=== PATIENT | female | born 1955 | race Caucasian/White ===

== ENCOUNTER 2023-06-22 13:38 | Inpatient (IN) | payer MEDICARE, MEDICAID ==
[~2023-06-22] VITALS: Ht 154.9 cm; Wt 58.7 kg
[~2023-06-22 13:38] MED LIST: ARIP5TAB37 PO; CITA-107 PO; TRAZ-184 PO
[2023-06-22 14:26] LABS: BASOPHILS % (AUTO) 0.6 % (0.0-2.0); EOSINOPHILS % (AUTO) 0.3 % (1.0-6.0); HEMOGLOBIN 13.5 g/dL (12.0-16.0); LYMPHOCYTES # (AUTO) 1.4 K/uL (1.0-4.8); LYMPHOCYTES % (AUTO) 19.6 % (22.0-44.0); MEAN CORPUSCULAR HEMOGLOBIN 29.3 pg (26.0-34.0); MEAN CORPUSCULAR HGB CONC 33.7 G/dL (31.0-37.0); MEAN CORPUSCULAR VOLUME 87 fL (80-100); MONOCYTES # (AUTO) 0.5 K/uL (0.1-1.0); MONOCYTES % (AUTO) 7.1 % (2.0-9.0); NEUTROPHILS # (AUTO) 5.2 K/uL (1.8-7.7); NEUTROPHILS % (AUTO) 72.4 % (40.0-70.0); PLATELET COUNT (AUTO) 249 K/uL (150-450); WHITE BLOOD COUNT (AUTO) 7.2 K/uL (4.5-11.0)
[2023-06-22] MEDS ORDERED: ZOLPIDEM TARTRATE 10 MG TABLET PO PRN (14:30)
[2023-06-22 14:39] LABS: ANION GAP 9 mmol/L (8-16); CALCIUM, TOTAL 8.4 mg/dL (8.8-10.5); CARBON DIOXIDE 24 mmol/L (22-29); CHLORIDE 107 mmol/L (98-107); CREATININE 0.95 mg/dL (0.60-1.30); GLOMERULAR FILTR. RATE CALC 59 mL/min (>60); GLUCOSE,RANDOM 111 mg/dL (70-110); POTASSIUM 3.5 mmol/L (3.5-5.1); SODIUM SERUM 140 mmol/L (136-145); UREA NITROGEN, BLOOD 18 mg/dL (7-18)
[2023-06-22 14:45] LABS: ALANINE AMINOTRANSFERASE 24 U/L (12-78); ALBUMIN 3.1 g/dL (3.4-5.0); ALKALINE PHOSPHATASE 104 U/L (46-116); ASPARTATE AMINOTRANSFERASE 17 U/L (15-37); BILIRUBIN,TOTAL 0.4 mg/dL (0.1-1.0); TOTAL PROTEIN, SERUM 6.5 g/dL (6.4-8.2)
[2023-06-22 15:06] LABS: APPEARANCE,URINE CLEAR (CLEAR); BILIRUBIN,URINE NEGATIVE (NEGATIVE); COLOR,URINE COLORLESS (YELLOW); GLUCOSE, URINE (UA) NEGATIVE (NEGATIVE); LEUKOCYTE ESTERASE ,URINE NEGATIVE (NEGATIVE); NITRATE,URINE NEGATIVE (NEGATIVE); OCCULT BLOOD,URINE NEGATIVE (NEGATIVE); PROTEIN,URINE NEGATIVE (NEGATIVE); SPECIFIC GRAVITIY, URINE 1.011 (1.003-1.030); UROBILINOGEN,URINE <=1.0 mg/dL (<=1.0)
[2023-06-22 15:12] LABS: ALCOHOL, BLOOD (SERUM) < 3 mg/dL (0-10)
[2023-06-22 15:13] LABS: AMPHET/METH SCREEN,URINE NEGATIVE (NEGATIVE); BARBITURATE SCREEN, URINE NEGATIVE (NEGATIVE); BENZODIAZEPINES SCREEN,URINE NEGATIVE (NEGATIVE); CANNABINOID SCREEN,URINE NEGATIVE (NEGATIVE); COCAINE SCREEN,URINE NEGATIVE (NEGATIVE); METHADONE SCREEN, URINE NEGATIVE (NEGATIVE); OPIATE SCREEN,URINE NEGATIVE (NEGATIVE); PHENCYCLIDINE SCREEN,URINE NEGATIVE (NEGATIVE)
[2023-06-22 15:14] LABS: ALCOHOL, URINE DRUG SCREEN NEGATIVE (NEGATIVE)
[2023-06-22] MEDS: LORazepam 2 MG TABLET PO PRN (15:35)
[2023-06-22] MEDS ORDERED: LIDOCAINE 1% 10 ML VIAL SQ ONE (15:45)
[2023-06-22 16:01] LABS: COVID AG,FIA SOURCE NASAL SWAB
[2023-06-22 16:21] LABS: SARS-COV2 (COVID) ANTIGEN,FIA Negative (Negative)
[2023-06-22] MEDS ORDERED: CEPHALEXIN MONOHYDRATE 500 MG CAPSULE PO ONE (16:45)
[2023-06-22] MEDS ORDERED: PERTUSS(ACELL),DIPH,TET VAC/PF 0.5 ML SYRINGE IM. ONE (16:45)
[2023-06-22 20:30] VITALS: BP 112/79; PULSE 68; RESP 18; TEMP 98
[2023-06-23] MEDS ORDERED: LOPERAMIDE HCL 2 MG CAPSULE PO PRN (07:15)
[2023-06-23] MEDS ORDERED: PETROLATUM,WHITE 28 GM JELLY TP PRN (07:15)
[2023-06-23] MEDS ORDERED: DOCUSATE SODIUM 100 MG CAPSULE PO PRN (07:15)
[2023-06-23] MEDS ORDERED: GuaiFENesin/D-METHORPHAN [SUGAR-FREE] 200-20MG/10 ML SYRUP UDCUP PO PRN (07:15)
[2023-06-23] MEDS ORDERED: MAGNESIUM HYDROXIDE SUSPENSION 30 ML UDCUP PO PRN (07:15)
[2023-06-23] MEDS ORDERED: ALBUTEROL SULFATE HFA 90 MCG/PUFF 8 GM INHALER IH PRN (07:15)
[2023-06-23] MEDS ORDERED: NICOTINE 14 MG/24 HOUR PATCH TD PRN (07:15)
[2023-06-23] MEDS ORDERED: CloNIDine HCL 0.1 MG TABLET PO PRN (07:15)
[2023-06-23 09:00] VITALS: BP 111/65; PULSE 103; RESP 18; TEMP 97.5; O2SAT 99
[2023-06-23] MEDS ORDERED: BACITRACIN 28 GM OINTMENT TP SCH (09:00)
[2023-06-23] MEDS ORDERED: CEPHALEXIN MONOHYDRATE 500 MG CAPSULE PO SCH (09:00)
[2023-06-23] MEDS: CEPHALEXIN MONOHYDRATE 250 MG CAPSULE PO SCH ×3 (10:05→23:34)
[2023-06-23] MEDS: BACITRACIN 28 GM OINTMENT TP SCH (10:06)
[2023-06-23] MEDS: QUEtiapine FUMARATE 100 MG TABLET PO PRN (10:07)
[2023-06-23 10:09] VITALS: BP 111/65; PULSE 113; RESP 18; TEMP 98
[2023-06-23] MEDS: IBUPROFEN 400 MG TABLET PO PRN (10:09)
[2023-06-23] MEDS ORDERED: BUSP30TA2 PO (10:23)
[2023-06-23] MEDS ORDERED: PARO30TA60 PO (10:23)
[2023-06-23] MEDS ORDERED: MIRT-92 PO (10:23)
[2023-06-23] MEDS ORDERED: PROP20TA96 PO (10:23)
[2023-06-23 11:09] VITALS: BP 116/71; PULSE 78; RESP 18; TEMP 97.8
[2023-06-23] MEDS: BusPIRone HCL 15 MG TABLET PO SCH ×2 (11:59→21:06)
[2023-06-23] MEDS: PARoxetine HCL 20 MG TABLET PO SCH (11:59)
[2023-06-23 14:33] LABS: TROPONIN I-HIGH SENSITIVITY 5 ng/L (<51)
[2023-06-23] MEDS: LORazepam 2 MG TABLET PO PRN (18:12)
[2023-06-23] MEDS: ZOLPIDEM TARTRATE 10 MG TABLET PO PRN (23:33)
[2023-06-23 23:34] VITALS: BP 119/72; PULSE 76; RESP 18; TEMP 97.7
[2023-06-24 08:47] LABS: HEMOGLOBIN A1C 6.1 % (3.8-5.6)
[2023-06-24 08:57] VITALS: BP 115/66; PULSE 108; RESP 17; TEMP 97.4; O2SAT 98
[2023-06-24 09:04] LABS: THYROID STIMULATING HORMONE 1.17 uIU/mL (0.36-3.74)
[2023-06-24] MEDS: CEPHALEXIN MONOHYDRATE 250 MG CAPSULE PO SCH ×3 (09:46→23:17)
[2023-06-24] MEDS: BusPIRone HCL 15 MG TABLET PO SCH ×2 (09:46→21:02)
[2023-06-24] MEDS: BACITRACIN 28 GM OINTMENT TP SCH (09:48)
[2023-06-24] MEDS: PARoxetine HCL 20 MG TABLET PO SCH (09:48)
[2023-06-24 10:09] LABS: CHOL/HDL RATIO 3.4 (3.9-5.7)
[2023-06-24] MEDS: LORazepam 2 MG TABLET PO PRN ×2 (12:01→22:09)
[2023-06-24] MEDS: ZOLPIDEM TARTRATE 10 MG TABLET PO PRN (21:14)
[2023-06-24 21:39] VITALS: BP 104/74; PULSE 106; RESP 18; TEMP 97.8; O2SAT 97
[2023-06-25] MEDS: CEPHALEXIN MONOHYDRATE 250 MG CAPSULE PO SCH ×3 (08:26→23:13)
[2023-06-25] MEDS: PARoxetine HCL 20 MG TABLET PO SCH (08:27)
[2023-06-25] MEDS: BACITRACIN 28 GM OINTMENT TP SCH (08:27)
[2023-06-25] MEDS: BusPIRone HCL 15 MG TABLET PO SCH ×2 (08:27→20:57)
[2023-06-25 10:05] VITALS: BP 125/75; PULSE 114; RESP 18; TEMP 97.5; O2SAT 96
[2023-06-25] MEDS: IBUPROFEN 400 MG TABLET PO PRN (13:48)
[2023-06-25 13:51] VITALS: BP 132/87; PULSE 97; RESP 18; TEMP 97.9; O2SAT 97
[2023-06-25] MEDS: ACETAMINOPHEN 325 MG TABLET PO PRN (13:51)
[2023-06-25] MEDS: MAG HYDROX/ALUMINUM HYD/SIMETH ES 30 ML SUSPENSION UDCUP PO PRN (14:27)
[2023-06-25 21:47] VITALS: BP 104/77; PULSE 97; RESP 18; TEMP 97.6; O2SAT 98
[2023-06-25] MEDS: ZOLPIDEM TARTRATE 10 MG TABLET PO PRN (23:13)
[2023-06-26] MEDS: LORazepam 2 MG TABLET PO PRN ×2 (02:05→19:15)
[2023-06-26] MEDS: CEPHALEXIN MONOHYDRATE 250 MG CAPSULE PO SCH ×3 (08:10→23:06)
[2023-06-26] MEDS: BusPIRone HCL 15 MG TABLET PO SCH (08:11)
[2023-06-26] MEDS: BACITRACIN 28 GM OINTMENT TP SCH (08:11)
[2023-06-26] MEDS: PARoxetine HCL 20 MG TABLET PO SCH (08:11)
[2023-06-26 09:58] VITALS: BP 143/95; PULSE 90; RESP 18; TEMP 97.8; O2SAT 97
[2023-06-26 14:38] VITALS: BP 136/78; PULSE 87; RESP 18; TEMP 98.3; O2SAT 98
[2023-06-26] MEDS: ACETAMINOPHEN 325 MG TABLET PO PRN (14:38)
[2023-06-26 21:11] VITALS: BP 123/73; PULSE 82; RESP 18; TEMP 98.1; O2SAT 98
[2023-06-26] MEDS: BusPIRone HCL 10 MG TABLET PO SCH (21:13)
[2023-06-26] MEDS: ZOLPIDEM TARTRATE 10 MG TABLET PO PRN (23:06)
[2023-06-27] MEDS: PARoxetine HCL 20 MG TABLET PO SCH (10:08)
[2023-06-27] MEDS: CEPHALEXIN MONOHYDRATE 250 MG CAPSULE PO SCH ×3 (10:09→23:36)
[2023-06-27] MEDS: BusPIRone HCL 10 MG TABLET PO SCH ×2 (10:09→21:04)
[2023-06-27] MEDS: BACITRACIN 28 GM OINTMENT TP SCH (10:09)
[2023-06-27 10:45] VITALS: BP 122/76; PULSE 107; RESP 18; TEMP 96.2; O2SAT 97
[2023-06-27] MEDS: LORazepam 2 MG TABLET PO PRN ×2 (13:52→22:13)
[2023-06-27] MEDS: ZOLPIDEM TARTRATE 10 MG TABLET PO PRN (21:04)
[2023-06-27 22:51] VITALS: BP 125/79; PULSE 81; RESP 18; TEMP 97.8; O2SAT 97
[2023-06-28] MEDS: CEPHALEXIN MONOHYDRATE 250 MG CAPSULE PO SCH ×3 (08:19→23:39)
[2023-06-28] MEDS: BusPIRone HCL 10 MG TABLET PO SCH ×2 (08:20→21:08)
[2023-06-28] MEDS: BACITRACIN 28 GM OINTMENT TP SCH (08:20)
[2023-06-28] MEDS: PARoxetine HCL 20 MG TABLET PO SCH (08:20)
[2023-06-28 08:38] VITALS: BP 110/62; PULSE 101; RESP 18; TEMP 97.7; O2SAT 96
[2023-06-28] MEDS: LORazepam 2 MG TABLET PO PRN ×2 (11:50→22:31)
[2023-06-28] MEDS: ZOLPIDEM TARTRATE 10 MG TABLET PO PRN (21:08)
[2023-06-28 22:30] VITALS: BP 116/67; PULSE 102; RESP 18; TEMP 97.5; O2SAT 96
[2023-06-29 08:00] VITALS: BP 109/66; PULSE 114; RESP 16; TEMP 98.2; O2SAT 96
[2023-06-29] MEDS: CEPHALEXIN MONOHYDRATE 250 MG CAPSULE PO SCH ×3 (09:54→23:47)
[2023-06-29] MEDS: PARoxetine HCL 20 MG TABLET PO SCH (09:54)
[2023-06-29] MEDS: BACITRACIN 28 GM OINTMENT TP SCH (09:54)
[2023-06-29] MEDS: BusPIRone HCL 10 MG TABLET PO SCH ×2 (09:54→20:56)
[2023-06-29 12:11] VITALS: BP 127/83; PULSE 108; RESP 18; O2SAT 97
[2023-06-29] MEDS: LORazepam 2 MG TABLET PO PRN (12:11)
[2023-06-29 13:11] VITALS: RESP 18
[2023-06-29] MEDS: QUEtiapine FUMARATE 100 MG TABLET PO PRN (14:01)
[2023-06-29] MEDS: ZOLPIDEM TARTRATE 10 MG TABLET PO PRN (21:02)
[2023-06-29 21:11] VITALS: BP 108/65; PULSE 86; RESP 18; TEMP 98; O2SAT 98
[2023-06-30] MEDS: CEPHALEXIN MONOHYDRATE 250 MG CAPSULE PO SCH (08:33)
[2023-06-30] MEDS: BusPIRone HCL 10 MG TABLET PO SCH ×2 (08:34→20:50)
[2023-06-30] MEDS: ONDANSETRON HCL 4 MG TABLET PO PRN (08:35)
[2023-06-30] MEDS: MAG HYDROX/ALUMINUM HYD/SIMETH ES 30 ML SUSPENSION UDCUP PO PRN (08:36)
[2023-06-30] MEDS: LORazepam 1 MG TABLET PO PRN ×2 (08:36→22:35)
[2023-06-30] MEDS: PARoxetine HCL 20 MG TABLET PO SCH (08:37)
[2023-06-30 08:57] VITALS: BP 124/74; PULSE 116; RESP 18; TEMP 98; O2SAT 98
[2023-06-30 14:04] VITALS: BP 133/73; PULSE 116
[2023-06-30] MEDS: PROPRANOLOL HCL 10 MG TABLET PO SCH ×2 (14:06→18:25)
[2023-06-30] MEDS: BACITRACIN 28 GM OINTMENT TP SCH (14:06)
[2023-06-30 16:51] VITALS: BP 127/75; PULSE 91; RESP 20; TEMP 98
[2023-06-30] MEDS: ACETAMINOPHEN 325 MG TABLET PO PRN (16:53)
[2023-06-30] MEDS: ZOLPIDEM TARTRATE 10 MG TABLET PO PRN (21:03)
[2023-06-30 21:35] VITALS: BP 135/95; PULSE 86; RESP 18; TEMP 97.9; O2SAT 98
[2023-07-01] MEDS: PARoxetine HCL 20 MG TABLET PO SCH (08:24)
[2023-07-01] MEDS: PROPRANOLOL HCL 10 MG TABLET PO SCH ×3 (08:24→16:45)
[2023-07-01] MEDS: ACETAMINOPHEN 325 MG TABLET PO PRN (08:24)
[2023-07-01] MEDS: BACITRACIN 28 GM OINTMENT TP SCH (08:29)
[2023-07-01] MEDS: BusPIRone HCL 10 MG TABLET PO SCH ×2 (08:29→21:39)
[2023-07-01] MEDS: LORazepam 1 MG TABLET PO PRN ×2 (10:35→22:39)
[2023-07-01 10:37] VITALS: BP 121/71; PULSE 95; RESP 19; TEMP 97.6; O2SAT 98
[2023-07-01 13:06] VITALS: BP 111/76; PULSE 88; RESP 18; O2SAT 100
[2023-07-01] MEDS: IBUPROFEN 400 MG TABLET PO PRN (13:06)
[2023-07-01 16:43] VITALS: BP 122/80; PULSE 78; RESP 18; O2SAT 100
[2023-07-01] MEDS: ZOLPIDEM TARTRATE 10 MG TABLET PO PRN (21:39)
[2023-07-01 21:52] VITALS: BP 120/66; PULSE 71; RESP 18; TEMP 98; O2SAT 96
[2023-07-02] MEDS: PROPRANOLOL HCL 10 MG TABLET PO SCH ×3 (09:41→17:32)
[2023-07-02] MEDS: BusPIRone HCL 10 MG TABLET PO SCH (09:41)
[2023-07-02] MEDS: PARoxetine HCL 20 MG TABLET PO SCH (09:42)
[2023-07-02] MEDS: BACITRACIN 28 GM OINTMENT TP SCH (09:43)
[2023-07-02] MEDS: LORazepam 1 MG TABLET PO PRN ×2 (10:41→23:23)
[2023-07-02 14:09] VITALS: BP 145/91; RESP 18; O2SAT 98
[2023-07-02 16:47] VITALS: BP 121/81; PULSE 89; RESP 18; O2SAT 98
[2023-07-02 18:26] VITALS: RESP 18
[2023-07-02] MEDS: IBUPROFEN 400 MG TABLET PO PRN (18:29)
[2023-07-02 19:26] VITALS: RESP 18
[2023-07-02] MEDS: ZOLPIDEM TARTRATE 10 MG TABLET PO PRN (21:11)
[2023-07-02 21:30] VITALS: BP 116/68; PULSE 83; RESP 17; TEMP 98.1; O2SAT 98
[2023-07-03 08:00] VITALS: BP 134/82; PULSE 94; RESP 18; TEMP 97.9; O2SAT 97
[2023-07-03] MEDS: BACITRACIN 28 GM OINTMENT TP SCH (08:23)
[2023-07-03] MEDS: PROPRANOLOL HCL 10 MG TABLET PO SCH ×3 (08:24→16:52)
[2023-07-03] MEDS: PARoxetine HCL 20 MG TABLET PO SCH (08:24)
[2023-07-03] MEDS: MAG HYDROX/ALUMINUM HYD/SIMETH ES 30 ML SUSPENSION UDCUP PO PRN (10:26)
[2023-07-03 12:44] VITALS: BP 122/78; RESP 18; O2SAT 100
[2023-07-03] MEDS: IBUPROFEN 400 MG TABLET PO PRN ×2 (12:44→17:24)
[2023-07-03 13:44] VITALS: PULSE 80
[2023-07-03 17:24] VITALS: BP 132/74; PULSE 78; RESP 18; O2SAT 97
[2023-07-03] MEDS: ZOLPIDEM TARTRATE 10 MG TABLET PO PRN (21:33)
[2023-07-03 21:43] VITALS: BP 102/60; PULSE 79; RESP 18; TEMP 98.2; O2SAT 97
[2023-07-04] VITALS (7 sets, daily range): BP systolic 101–115; BP diastolic 63–71; PULSE 75–86; RESP 17–18; TEMP 96.8–98.4; O2SAT 97–98
[2023-07-04] MEDS: IBUPROFEN 400 MG TABLET PO PRN ×2 (00:47→18:04)
[2023-07-04] MEDS: PROPRANOLOL HCL 10 MG TABLET PO SCH ×3 (09:40→16:48)
[2023-07-04] MEDS: PARoxetine HCL 20 MG TABLET PO SCH (09:40)
[2023-07-04] MEDS: BACITRACIN 28 GM OINTMENT TP SCH (09:41)
[2023-07-04] MEDS: ONDANSETRON HCL 4 MG TABLET PO PRN (10:46)
[2023-07-04] MEDS: LORazepam 1 MG TABLET PO PRN (12:41)
[2023-07-04] MEDS: ACETAMINOPHEN 325 MG TABLET PO PRN (21:21)
[2023-07-04] MEDS: ZOLPIDEM TARTRATE 10 MG TABLET PO PRN (21:21)
[2023-07-05] MEDS: LORazepam 1 MG TABLET PO PRN (00:34)
[2023-07-05 08:53] VITALS: BP 112/70; PULSE 96; RESP 18; TEMP 97.9
[2023-07-05] MEDS: IBUPROFEN 400 MG TABLET PO PRN ×2 (08:53→16:34)
[2023-07-05] MEDS: PROPRANOLOL HCL 10 MG TABLET PO SCH ×3 (08:53→16:34)
[2023-07-05] MEDS: PARoxetine HCL 20 MG TABLET PO SCH (08:53)
[2023-07-05] MEDS: BACITRACIN 28 GM OINTMENT TP SCH (08:53)
[2023-07-05 09:53] VITALS: BP 110/72; PULSE 96; RESP 18; TEMP 97.9
[2023-07-05] MEDS: QUEtiapine FUMARATE 100 MG TABLET PO PRN (12:09)
[2023-07-05 16:34] VITALS: PULSE 79
[2023-07-05 21:16] VITALS: BP 110/60; PULSE 79; RESP 18; TEMP 97
[2023-07-05] MEDS: ZOLPIDEM TARTRATE 10 MG TABLET PO PRN (21:29)
[2023-07-06] MEDS: BACITRACIN 28 GM OINTMENT TP SCH (08:47)
[2023-07-06] MEDS: PROPRANOLOL HCL 10 MG TABLET PO SCH ×3 (08:47→17:00)
[2023-07-06] MEDS: PARoxetine HCL 20 MG TABLET PO SCH (08:47)
[2023-07-06 08:56] VITALS: BP 121/72; PULSE 89; RESP 16; TEMP 97.5; O2SAT 98
[2023-07-06] MEDS: QUEtiapine FUMARATE 100 MG TABLET PO PRN (10:10)
[2023-07-06 13:00] VITALS: BP 90/54; PULSE 90; RESP 18; TEMP 97.8
[2023-07-06 18:26] VITALS: BP 100/62; PULSE 88; RESP 18
[2023-07-06 20:21] VITALS: BP 109/69; PULSE 86; RESP 17; TEMP 97.7; O2SAT 98
[2023-07-06] MEDS: ZOLPIDEM TARTRATE 10 MG TABLET PO PRN (21:12)
[2023-07-06 23:57] VITALS: BP 112/68; PULSE 88; RESP 18; TEMP 97.6; O2SAT 97
[2023-07-07 00:57] VITALS: RESP 18
[2023-07-07 08:45] VITALS: BP 110/68; PULSE 105; RESP 18; TEMP 97; O2SAT 98
[2023-07-07] MEDS: BACITRACIN 28 GM OINTMENT TP SCH (09:00)
[2023-07-07] MEDS: PROPRANOLOL HCL 10 MG TABLET PO SCH ×3 (10:36→18:11)
[2023-07-07] MEDS: PARoxetine HCL 20 MG TABLET PO SCH (10:38)
[2023-07-07 14:15] VITALS: BP 112/64; PULSE 88
[2023-07-07] MEDS ORDERED: GABAPENTIN 100 MG CAPSULE PO PRN (15:30)
[2023-07-07] MEDS: ACETAMINOPHEN 325 MG TABLET PO PRN ×2 (15:45)
[2023-07-07 20:05] VITALS: BP 114/68; PULSE 82; RESP 18; TEMP 97.2; O2SAT 97
[2023-07-07] MEDS: ZOLPIDEM TARTRATE 10 MG TABLET PO PRN (21:08)
[2023-07-07] MEDS: LORazepam 1 MG TABLET PO PRN ×2 (22:09)
[2023-07-08 08:00] VITALS: BP 111/71; PULSE 84; RESP 18; TEMP 97.1; O2SAT 98
[2023-07-08] MEDS: PROPRANOLOL HCL 10 MG TABLET PO SCH ×3 (09:22→18:22)
[2023-07-08] MEDS: PARoxetine HCL 20 MG TABLET PO SCH (09:22)
[2023-07-08] MEDS: BACITRACIN 28 GM OINTMENT TP SCH (10:56)
[2023-07-08] MEDS: IBUPROFEN 400 MG TABLET PO PRN (11:44)
[2023-07-08] MEDS: LORazepam 1 MG TABLET PO PRN ×2 (11:48→12:15)
[2023-07-08] MEDS: QUEtiapine FUMARATE 100 MG TABLET PO PRN ×2 (14:13→14:19)
[2023-07-08 14:15] VITALS: BP 110/65; PULSE 80; RESP 18
[2023-07-08 18:20] VITALS: BP 117/68; PULSE 85; RESP 18; O2SAT 98
[2023-07-08 21:49] VITALS: BP 110/66; PULSE 70; RESP 18; TEMP 98.8; O2SAT 97
[2023-07-08] MEDS: GABAPENTIN 100 MG CAPSULE PO PRN (21:58)
[2023-07-08] MEDS: ZOLPIDEM TARTRATE 10 MG TABLET PO PRN (21:58)
[2023-07-09] MEDS: PROPRANOLOL HCL 10 MG TABLET PO SCH ×4 (08:12→16:37)
[2023-07-09] MEDS: BACITRACIN 28 GM OINTMENT TP SCH (08:12)
[2023-07-09] MEDS: PARoxetine HCL 20 MG TABLET PO SCH (08:12)
[2023-07-09 09:00] VITALS: BP 109/67; PULSE 80; RESP 18; TEMP 97.3; O2SAT 98
[2023-07-09 12:05] VITALS: BP 103/65; PULSE 78; RESP 18; TEMP 97.6; O2SAT 98
[2023-07-09] MEDS: ACETAMINOPHEN 325 MG TABLET PO PRN (12:05)
[2023-07-09] MEDS: LORazepam 1 MG TABLET PO PRN (20:01)
[2023-07-09] MEDS: GABAPENTIN 100 MG CAPSULE PO PRN (20:01)
[2023-07-09 20:30] VITALS: BP 102/63; PULSE 78; RESP 19; TEMP 97.6; O2SAT 78
[2023-07-09] MEDS: ZOLPIDEM TARTRATE 10 MG TABLET PO PRN (20:48)
[2023-07-10] MEDS: BACITRACIN 28 GM OINTMENT TP SCH (08:40)
[2023-07-10] MEDS: PARoxetine HCL 20 MG TABLET PO SCH (08:40)
[2023-07-10] MEDS: PROPRANOLOL HCL 10 MG TABLET PO SCH ×3 (08:40→16:09)
[2023-07-10] MEDS: LORazepam 1 MG TABLET PO PRN (09:14)
[2023-07-10 09:50] VITALS: BP 111/71; PULSE 86; RESP 19; TEMP 97.1
[2023-07-10 11:58] VITALS: BP 112/74; PULSE 79; RESP 18; TEMP 97.9; O2SAT 83
[2023-07-10] MEDS: IBUPROFEN 400 MG TABLET PO PRN (11:58)
[2023-07-10] MEDS: ZOLPIDEM TARTRATE 10 MG TABLET PO PRN (20:40)
[2023-07-10 21:28] VITALS: BP 111/64; PULSE 79; RESP 18; TEMP 97.6; O2SAT 98
[2023-07-11] MEDS: LORazepam 1 MG TABLET PO PRN ×2 (00:30→12:00)
[2023-07-11] MEDS: GABAPENTIN 100 MG CAPSULE PO PRN (00:30)
[2023-07-11 09:03] VITALS: BP 117/72; PULSE 92; RESP 19; TEMP 96.6; O2SAT 96
[2023-07-11] MEDS: PARoxetine HCL 20 MG TABLET PO SCH (09:53)
[2023-07-11] MEDS: PROPRANOLOL HCL 10 MG TABLET PO SCH ×2 (09:53→12:44)
[2023-07-11] MEDS: BACITRACIN 28 GM OINTMENT TP SCH (09:53)
[2023-07-11 12:45] VITALS: BP 104/55; PULSE 65; RESP 18
[2023-07-11] MEDS ORDERED: PROP10TA72 PO (15:49)
[2023-07-11] MEDS ORDERED: PARO-37 PO (15:49)
== END 2023-07-11 17:30 | disposition home or self-care (01) | DRG 885 ==
LOC: EMS 13:38 → EDBD 14:16 → 3EI 14:16 → 3EX 07-04 12:37
PROVIDERS: ADMIT Psychiatry & Neurology Psychiatry; ATTEND Psychiatry & Neurology Psychiatry
PROC: 0HQEXZZ Repair Left Lower Arm Skin, External Approach (ICD-10-PCS; principal; 2023-06-22)
PROC: 0HQDXZZ Repair Right Lower Arm Skin, External Approach (ICD-10-PCS; 2023-06-22)
PROC: GZHZZZZ Group Psychotherapy (ICD-10-PCS; 2023-06-23)
DX: F33.2 Major depressive disorder, recurrent severe without psychotic features (principal); R45.851 Suicidal ideations; S61.511A Laceration without foreign body of right wrist, initial encounter; S61.512A Laceration without foreign body of left wrist, initial encounter; F41.9 Anxiety disorder, unspecified; F11.10 Opioid abuse, uncomplicated; G47.00 Insomnia, unspecified; M19.90 Unspecified osteoarthritis, unspecified site; Z20.822 Contact with and (suspected) exposure to COVID-19; X58.XXXA Exposure to other specified factors, initial encounter; Y93.89 Activity, other specified; Z79.899 Other long term (current) drug therapy; Y92.89 Other specified places as the place of occurrence of the external cause; Y99.8 Other external cause status
CPT/HCPCS: 80053; 80061; 80307; 81003; 83036; 84443; 84484; 85025; 87081; 90715; 93306; 99285; G0378; G0480; J3490; Q0162